=== PATIENT | female | born 1965 | race Caucasian/White ===

== ENCOUNTER 2021-07-31 15:44 | Emergency (ER) | payer OTHER, SELFPAY ==
[2021-07-31 16:20] VITALS: BP 115/74; PULSE 82; RESP 16; TEMP 36.7; O2SAT 96
--- NOTE | 2021-07-31 16:37 | ED.BACK ---
HPI - Back Pain/Injury General Chief Complaint: Back Pain/Injury Stated Complaint: fell tailbone pain Time Seen by Provider: 07/31/21 16:37 Source: patient Mode of arrival: ambulatory Limitations: no limitations History of Present Illness HPI Narrative: 56-year-old woman comes in today complaining of tailbone pain after she fell while walking her dog 2 days ago. She dropped her phone when she bent over the dog ran behind her pulling her backwards. Patient states she has no weakness, numbness, tingling, incontinence or upper back pain. She denies history of back surgery. MD elicited complaint: back pain Pertinent past history: recent trauma Onset (ago): day(s) (2) Timing: constant Severity: moderate Similar Symptoms Previously: No Quality: sharp and aching Location: sacrum Radiation: none Exacerbating factors: other (Sitting, lying supine) Relieving factors: other (Standing, lying on side.) Context: fall Associated symptoms: denies other symptoms Work related injury: No Related Data Home Medications Medication Instructions Recorded Confirmed gabapentin 600 mg PO TID 07/31/21 07/31/21 Allergies Allergy/AdvReac Type Severity Reaction Status Date / Time ketorolac Allergy Mild Verified 04/21/18 04:21 tramadol Allergy Mild Verified 04/21/18 04:21 carbamazepine Allergy Unknown Verified 08/03/12 10:50 ibuprofen Allergy Unknown Verified 09/22/15 13:50 Review of Systems Review of Systems: All systems reviewed & are unremarkable except as noted in HPI and below Constitutional: Constitutional: Denies weakness Cardiovascular: Cardiovascular: Denies chest pain and Denies radiating jaw, neck or arm pain Respiratory: Respiratory: Denies cough and Denies dyspnea Gastrointestinal: Gastrointestinal: Denies abdominal pain and Denies nausea Genitourinary: Genitourinary: Denies nocturia and Denies dysuria Musculoskeletal: Musculoskeletal: Reports back pain, Denies arthralgias and Denies joint swelling Neurologic: Denies vertigo, Denies dizziness, Denies syncope, Denies focal weakness and Denies numbness Hematologic/Lymphatic: Hematologic/Lymphatic: Denies easy bleeding and Denies easy bruising Allergic/Immunologic: Allergic/Immunologic: Denies lip swelling and Denies throat swelling PMFSH Past Medical History Medical History (Updated 07/31/21 @ 16:53 by Michael Gomez MD) Scalp pain Surgical History Surgical History (Updated 07/31/21 @ 16:46 by Michael Gomez MD) H/O vascular surgery Scalp Family History Family History (Updated 05/12/16 @ 23:19 by DOCTOR UNKNOWN) Mother Hypertension Family history of diabetes mellitus in first degree relative Family history of coronary artery disease Father Family history of lung cancer Other Diabetes mellitus Social History Social History Smoking status: Smoker, status unknown Alcohol intake: never Exam Const: General: healthy appearing and alert Orientation/consciousness: patient oriented x3 Limitations: no limitations Other: Moderate acute distress. HENMT: Head: normal to inspection Eyes: Conjunctivae: conjunctivae normal Pupils: Equal, round and reactive pupils present EOM: EOMs intact bilaterally Resp: Effort & Inspection: normal respiratory effort and not labored Auscultation: clear to auscultation bilaterally, no rales, no rhonchi and no wheezes Cardio: Rate: regular rate and tachycardic Rhythm: regular rhythm Heart sounds: no murmurs Back/Spine/Pelvis: Back: no CVA tenderness Other: Tenderness to palpation of the lower sacrum and coccyx. No step-off or abnormal contour. Skin: General skin exam: normal color, no jaundice and no pallor Rashes: no rashes Neuro: General: patient oriented x3, moves all extremities, no focal motor deficits and CN's II-XI intact bilaterally Speech: normal speech Gait exam (Neuro): Normal gait present Extrem: General: normal to ins
[2021-07-31 16:56] VITALS: RESP 14; O2SAT 96
== END 2021-07-31 16:57 | disposition home or self-care (01) ==
PROVIDERS: Emergency Provider Emergency Medicine
DX: S39.92XA Unspecified injury of lower back, initial encounter (principal); W19.XXXA Unspecified fall, initial encounter
CPT/HCPCS: 99283

== ENCOUNTER 2021-12-10 22:56 | Emergency (ER) | payer OTHER, SELFPAY ==
--- NOTE | ~2021-12-10 | CT_ITS ---
EXAMINATION: CTA chest PE abdomen pel EXAM DATE: 12/11/2021 01:33 INDICATION: Shortness of breath, chest pain, nausea vomiting. Generalized abdominal pain. TECHNIQUE: Spiral CTA of the chest (pulmonary arteries) was performed with 100 cc Omnipaque 350 intr avenous contrast injection. Images were acquired during the pulmonary arterial phase. Coronal maxi mum intensity projection 3D-reconstructions were created by the technologist on dedicated workstation . Axial, coronal and sagittal reformatted images were reviewed. Spiral CT of the abdomen and pelvis was then performed with the same intravenous contrast injection. Axial, coronal and sagittal reform atted images were reviewed. The dose-length product (DLP) for this examination was 405.43 mGy-cm. T he exposure was tailored according to patient size (auto mA exposure control), and iterative reconst ruction (ASIR) was used as additional dose reduction technique. There is no prior study for comparis on. FINDINGS: CHEST: Pulmonary arteries are well opacified and without intraluminal filling defects. No thoracic aortic dissection. There is mild to moderate emphysema. Right lower lobe superior segmental nodule with coarse central calcification most likely granuloma, mild bronchiectasis just proximal to this no dule. No suspicious pulmonary nodules. There are no pleural or pericardial effusions. Tracheobronc hial tree is patent. There is no mediastinal, hilar or axillary lymphadenopathy. There is no pneu mothorax. Heart normal in size. No evidence of coronary arterial calcification. ABDOMEN PELVIS: The liver, spleen, adrenal glands and pancreas are unremarkable. Gallbladder is unre markable. No biliary obstruction. Portal and splenic veins are patent. Kidneys enhance symmetrical ly. There is no hydronephrosis. The uterus is unremarkable. The bladder is unremarkable. There is no retroperitoneal or pelvic lymphadenopathy. There are no findings to suggest appendicitis. Loops of mildly distended fluid-filled small bowel. T here is fluid throughout the colon. Appearance most consistent with gastroenteritis. There is expect ed amount of colonic stool. No free intraperitoneal gas. There are no osteoblastic or osteolytic lesions identified. IMPRESSION: 1. Findings consistent with gastroenteritis. 2. Right lower lobe nodule with calcification probably granuloma. Consider 6-12 month follow-up CT. 3. Mild to moderate emphysema. Reviewed, dictated and finalized at location A. RANCE ENGINEER IMPRESSION: 1. Findings consistent with gastroenteritis. 2. Right lower lobe nodule with calcification probably granuloma. Consider 6-1 2 month follow-up CT. 3. Mild to moderate emphysema.
[2021-12-10 22:55] VITALS: BP 124/78; PULSE 106; RESP 18; TEMP 36.5; O2SAT 100
[2021-12-10] MEDS: ONDANSETRON INJ 4 MG/2 ML VIAL (23:08)
--- NOTE | 2021-12-10 23:21 | ECG_ITS ---
Measurements Intervals Pax Rate: 122 P: 75 FL: 131 QRS: 62 QRSD: 78 T: -64 QT: 280 QTc: 400 Interpretive Statements SINUS TACHYCARDIA ST-T WAVE ABNORMALITY IN ANTEROLAT/INF LEADS- CONSIDER ISCHEMIA ABNORMAL ECG Electronically Signed On 12-11-2021 7:23:49 OPERATIONS SUPPORT MANAGER by Chas Vega D.O.
[2021-12-10 23:26] LABS: Basophils Percent Auto 0.3 % (0.2-1.2); Hematocrit 48.8 % (37.0-47.0); Hemoglobin 15.7 g/dL (12.0-15.0); Immature Granulocyte Absolute 0.06 K/mm3 (0.00-0.031); Immature Granulocyte Percent A 0.5 % (0-0.5); Lymphocytes Absolute Auto 0.52 K/mm3 (0.9-3.2); Lymphocytes Percent Auto 4.4 % (18.3-44.2); Mean Corpuscular HGB Conc 32.2 g/dl (32-36); Mean Corpuscular Hemoglobin 31.7 pg (26-34); Mean Corpuscular Volume 98.4 fl (80-100); Mean Platelet Volume 10.6 fl (7.4-10.4); Monocytes Absolute Auto 0.6 K/mm3 (0.1-0.6); Monocytes Percent Auto 5.2 % (2.6-8.5); Neutrophils Absolute Auto 10.7 K/mm3 (1.3-6.7); Neutrophils Percent Auto 89.6 % (45.5-73.1); Platelet Count Result 311 k/mm3 (150-375); Red Blood Count 4.96 M/mm3 (4.2-5.4); Red Cell Distribution Width 13.3 % (11.5-14.5); White Blood Count 11.9 K/mm3 (4.5-10.0)
[2021-12-10 23:43] VITALS: O2SAT 96
[2021-12-11 00:08] LABS: SARS-CoV-2 RNA PCR Negative
[2021-12-11 00:11] LABS: Alanine Aminotransferase 29 U/L (4-35); Albumin Level 4.7 g/dL (3.5-5.1); Alkaline Phosphatase 91 U/L (38-126); Anion Gap 9 mmol/L (8-16); Aspartate Amino Transferase 35 U/L (14-36); Bilirubin,Total 0.2 mg/dL (0.2-1.3); Blood Urea Nitrogen 28 mg/dL (7-17); Calcium 9.1 mg/dL (8.4-10.2); Carbon Dioxide 22 mmol/L (22-30); Chloride 109 mmol/L (98-107); Estimated Glomerular Filt Rate > 60; Glucose 152 mg/dL (65-110); Potassium 4.1 mmol/L (3.4-5.0); Sodium 140 mmol/L (137-145)
[2021-12-11] MEDS: fentaNYL CITRATE INJ (*CRX) 100 MCG/2 ML VIAL 25 MCG IV PUSH (00:11)
[2021-12-11 00:12] VITALS: BP 92/58; PULSE 102; RESP 16; O2SAT 100
[2021-12-11 00:33] LABS: Troponin I < 0.012 ng/mL (0.000-0.034)
[2021-12-11 01:02] VITALS: BP 115/75; PULSE 95; RESP 20; O2SAT 96
[2021-12-11 02:02] VITALS: BP 91/78; PULSE 98; RESP 16; O2SAT 98
[2021-12-11 02:16] LABS: Add Urine Microscopic? YES; Appearance Urine Clear (Clear); Bacteria Urine Trace /hpf; Bilirubin Urine Negative (Negative); Blood Urine Negative (Negative); Color Urine Yellow (Yellow); Glucose Urine UA Negative (Negative); Ketones Urine Negative (Negative); Leukocyte Esterase Ur 1+ LEU/UL (Negative); Mucus Urine Few /lpf; Nitrate Urine Negative (Negative); Protein Urine Negative (Negative); Squamous Epithelial Cell Urine Many /hpf (Few); Urobilinogen Urine Negative mg/dL (<2.0)
[2021-12-11 02:34] LABS: Specific Grav Ur 1.035 (1.001-1.035)
--- NOTE | 2021-12-11 03:30 | ED.GENADULT ---
HPI - General Adult General Chief complaint: Nausea/Vomiting/Diarrhea <Yaa Paz APRN - Last Filed: 12/11/21 03:41> Stated complaint: N/V/D <Yaa Paz APRN - Last Filed: 12/11/21 03:41> Time Seen by Provider: 12/10/21 23:06 <Yaa Paz APRN - Last Filed: 12/11/21 03:41> Source: patient <Yaa Paz APRN - Last Filed: 12/11/21 03:41> Mode of arrival: ambulatory <Yaa Paz APRN - Last Filed: 12/11/21 03:41> Limitations: no limitations <Yaa Paz APRN - Last Filed: 12/11/21 03:41> History of Present Illness HPI narrative: 56-year-old female presents today with multiple complaints. Patient complains of sneezing all day, nausea, vomiting, diarrhea, shortness of breath, and possibly chest pain. Patient denies any sick contacts. Patient denies any runny nose, sore throat, cough, body aches, or chills. Patient currently a smoker. Patient also states she smokes maybe a pack every 3 days. Patient also with increased stressors at home. Patient son just yesterday. <Yaa Paz APRN - Last Filed: 12/11/21 03:41> Related Data Home medications: Home Medications Medication Instructions Recorded Confirmed gabapentin 600 mg PO TID 07/31/21 07/31/21 <Yaa Paz APRN - Last Filed: 12/11/21 03:41> Allergies/adverse reactions: Allergies Allergy/AdvReac Type Severity Reaction Status Date / Time ketorolac Allergy Mild Verified 04/21/18 04:21 tramadol Allergy Mild Verified 04/21/18 04:21 carbamazepine Allergy Unknown Verified 08/03/12 10:50 ibuprofen Allergy Unknown Verified 09/22/15 13:50 <Yaa Paz APRN - Last Filed: 12/11/21 03:41> Review of Systems Review of Systems: CONSTITUTIONAL: Denies fever, chills, or sweats. EYES: Denies visual changes, redness, or discharge. ENT: Denies rhinorrhea, congestion, sore throat, or otalgia. CARDIOVASCULAR: Denies palpitations, or edema. Intermittent chest pain RESPIRATORY: Denies cough. Shortness of breath GASTROINTESTINAL: Positive for abdominal pain, nausea, vomiting, or diarrhea. GENITOURINARY: Denies dysuria or hematuria. SKIN: Denies rash or itching. MUSCULOSKELETAL: Denies back pain, joint pain, or myalgia. NEUROLOGIC: Denies headache, numbness, dizziness, or weakness. PSYCHIATRIC: Denies anxiety or depression. <Yaa Paz APRN - Last Filed: 12/11/21 03:41> PMFSH Past Medical History Medical History: Medical History (Updated 12/11/21 @ 03:41 by Yaa Paz APRN) Scalp pain <Yaa Paz APRN - Last Filed: 12/11/21 03:41> Surgical History Surgical History: Surgical History (Updated 07/31/21 @ 16:46 by Michael Gomez MD) H/O vascular surgery Scalp <Yaa Paz APRN - Last Filed: 12/11/21 03:41> Family History Family History: Family History (Updated 05/12/16 @ 23:19 by DOCTOR UNKNOWN) Mother Hypertension Family history of diabetes mellitus in first degree relative Family history of coronary artery disease Father Family history of lung cancer Other Diabetes mellitus <Yaa Paz APRN - Last Filed: 12/11/21 03:41> Social History Social History: Social History Smoking status: Smoker, status unknown Alcohol intake: never <Yaa Paz APRN - Last Filed: 12/11/21 03:41> Exam Narrative: GENERAL: Well-appearing, well-nourished, and in no acute distress. HEAD: Normocephalic, atraumatic. EYES: PERRLA and EOMI. ENT: Nares clear, no rhinorrhea or epistaxis. Mucous membranes moist. Oropharynx without tonsillar hypertrophy exudate or other lesions. Bilateral TMs pearly gayle nonbulging NECK: Supple. No adenopathy or masses. No carotid bruits or JVD CHEST: Clear to auscultation. No respiratory distress. No wheezes rales or rhonchi HEART: Regular rate and rhythm. No murmur heard. Normal peripheral pulses. ABDOMEN: Soft, nondistended, normal
[2021-12-11 03:39] VITALS: BP 127/98; PULSE 87; RESP 16; O2SAT 98
== END 2021-12-11 03:39 | disposition home or self-care (01) ==
PROVIDERS: Emergency Provider Nurse Practitioner Family
DX: K52.9 Noninfective gastroenteritis and colitis, unspecified (principal); N39.0 Urinary tract infection, site not specified; Z20.822 Contact with and (suspected) exposure to COVID-19
CPT/HCPCS: 36415; 71275; 74177; 80053; 81001; 84484; 85025; 93005; 96374; 99284; C9803; J2405; J3010; Q9967; U0003; U0005

== ENCOUNTER 2022-10-29 16:55 | Emergency (ER) | payer OTHER, SELFPAY ==
--- NOTE | ~2022-10-29 | XR_ITS ---
EXAMINATION: XR knee LT 3V DATE: 10/29/2022 17:29 INDICATION: Posterior and medial left knee pain with inability to bear weight TECHNIQUE: Anteroposterior, 2 oblique and crosstable lateral views of the affected knee were obtained COMPARISON: None. FINDINGS: Alignment is normal. No fracture. Mild joint space narrowing the medial compartment which could be u nderestimated on nonweightbearing imaging. No evident osteophytosis. Tiny enthesopathic calcific lesi on at the distal quadriceps tendon. No joint effusion/layering lipohemarthrosis. Soft tissues are unr emarkable. IMPRESSION: 1. 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 No joint effusion or acute osseous abn ormality. Reviewed, dictated and finalized at location A. K FITTER IMPRESSION: 1. 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 No joint effusio n or acute osseous abnormality.
[2022-10-29 17:00] VITALS: BP 126/71; PULSE 87; RESP 18; TEMP 36.8; O2SAT 95
[2022-10-29 17:10] VITALS: BP 126/71; PULSE 87; RESP 18; TEMP 36.8; O2SAT 95
--- NOTE | 2022-10-29 17:23 | ED.GENADULT ---
HPI - General Adult General Chief complaint: Extremity Injury, Lower Stated complaint: pains in L knee Time Seen by Provider: 10/29/22 17:05 Source: patient Mode of arrival: ambulatory Limitations: no limitations History of Present Illness HPI narrative: Patient is a 57-year-old white female complains of left knee pain the last month with no history of injury or fall or trauma. Pain is at the medial aspect of her knee. She has used Tylenol and lidocaine patches without much benefit. Denies any previous injury or pain. Denies any left hip ankle or foot pain. Related Data Home Medications Medication Instructions Recorded Confirmed gabapentin 300 mg capsule 600 mg PO TID 07/31/21 07/31/21 Allergies Allergy/AdvReac Type Severity Reaction Status Date / Time ketorolac Allergy Mild Unknown Verified 10/29/22 17:52 tramadol Allergy Mild Unknown Verified 10/29/22 17:52 carbamazepine Allergy Unknown Unknown Verified 10/29/22 17:52 ibuprofen Allergy Unknown Unknown Verified 10/29/22 17:52 Review of Systems Constitutional: Constitutional: Reports no additional constitutional complaints Eyes: Eyes: Reports no additional eye complaints ENT: Reports system reviewed and no additional complaints, except as documented Cardiovascular: Cardiovascular: Reports no additional cardiovascular complaints Respiratory: Respiratory: Reports no additional respiratory complaints Gastrointestinal: Gastrointestinal: Reports no additional gastrointestinal complaints Genitourinary: Genitourinary: Reports no additional female genitourinary complaints Musculoskeletal: Musculoskeletal: Reports no additional musculoskeletal complaints, Reports as per HPI, Denies muscle cramps, Denies muscle weakness, Denies neck pain and Denies numbness Integumentary/Breasts: Skin/Breast: Reports system reviewed and no additional complaints, except as docu Neurologic: Reports system reviewed and no additional complaints, except as documented [facility] Past Medical History Medical History Scalp pain Surgical History Surgical History H/O vascular surgery Scalp Family History Family History Mother Hypertension Family history of diabetes mellitus in first degree relative Family history of coronary artery disease Father Family history of lung cancer Other Diabetes mellitus Social History Social History Smoking status: Smoker, status unknown Alcohol intake: never Comments Does not work for the last 3 months. Exam Narrative: Patient is a white female she appears in no apparent distress left knee: no effusions or discoloration or warmth. She has full range of motion of her knee hip ankles and foot. Left knee lockman test negative, negative anterior and posterior drawer test, stable to varus and valgus stresses. Medial knee tenderness mild. Leg is normal nontender left ankle and foot normal. DP and PT pulses are +2. . Gait is normal. Left hip is normal full range of motion. Course Vital Signs Vital signs: Vital Signs Temperature 36.8 C 10/29/22 17:00 Pulse Rate 87 10/29/22 17:00 Respiratory Rate 18 10/29/22 17:00 Blood Pressure 126/71 10/29/22 17:00 Pulse Oximetry 95 10/29/22 17:00 Oxygen Delivery Room Air 10/29/22 17:00 Temperature 36.8 C 10/29/22 17:00 Pulse Rate 87 10/29/22 17:00 Respiratory Rate 18 10/29/22 17:00 Blood Pressure 126/71 10/29/22 17:00 Pulse Oximetry 95 10/29/22 17:00 Oxygen Delivery Room Air 10/29/22 17:00 Medical Decision Making MDM Narrative Medical decision making narrative: Patient is a 57-year-old white female complains of chronic left knee pain for last month. Not seen anybody for this he is allergic to ketorolac tramadol
[2022-10-29] MEDS: HYDROcodone/acetaminophen (*CRX) 5-325 MG TABLET 1 TAB PO (17:58)
== END 2022-10-29 18:00 | disposition home or self-care (01) ==
LOC: CHSED 17:49
PROVIDERS: Emergency Provider Emergency Medicine
DX: M25.562 Pain in left knee (principal)
CPT/HCPCS: 73562; 99283; A9270

== ENCOUNTER 2024-01-31 13:05 | Outpatient (CLI) | payer OTHER, SELFPAY ==
--- NOTE | ~2024-01-31 | US_ITS ---
EXAMINATION: US thyroid DATE: 01/31/2024 13:27 INDICATION: Thyroid nodule. TECHNIQUE: Multiple ultrasound images of the thyroid were obtained. COMPARISON: None. FINDINGS: The right thyroid lobe measures 4.6 x 2.3 x 2.0 cm. The left thyroid lobe measures 5.0 x 1.9 x 1.5 c m. In the left thyroid lobe, there is a 6 mm solid, very hypoechoic, wider than tall nodule with smo oth margin without echogenic foci (TI-RADS TR4). In the right thyroid lobe, there is a 2.0 cm mixed c ystic and solid, hypoechoic wider than tall nodule with smooth margin without echogenic foci (TR3). I n the right thyroid lobe is a 16 mm almost entirely cystic nodule (TR1). IMPRESSION: 1. Thyroid nodules. Thyroid ultrasound is recommended in one year. Reviewed, dictated and finalized at location E.
== END 2024-01-31 13:06 | disposition home or self-care (01) ==
LOC: CHSIMG 13:06
PROVIDERS: PCP Family Medicine; Visit Provider Nurse Practitioner Family
DX: E04.1 Nontoxic single thyroid nodule (principal)
CPT/HCPCS: 76536